=== PATIENT | female | born 1960 | race Caucasian/White ===

== ENCOUNTER 2019-04-24 09:32 | Outpatient (CLI) | payer OTHER, SELFPAY ==
--- NOTE | 2019-04-24 09:45 | CT_ITS ---
WS: [id number] CT ABDOMEN AND PELVIS WITH AND WITHOUT CONTRAST HISTORY: IRRITABLE BOWEL SYNDROME, ABDOMINAL PAIN ,HYPERTENSION TECHNIQUE: Unenhanced 5 mm axial imaging first performed through the abdomen. Post contrast imaging t hrough the abdomen and pelvis. Oral contrast has been provided. Sagittal and coronal reformats are s ubmitted. All CT scans at [facility] use at least one of these dose optimization techniqu es: automated exposure control; mA and/or kV adjustment per patient size (includes targeted exams whe re dose is matched to clinical indication); or iterative reconstruction. CONTRAST: Omnipaque 300; 95 mL IV. DLP: 2890.85 mGy-cm. COMPARISON: None available. Lung bases are clear. Heart size is normal. Small hiatal hernia. Normal size liver. No bile duct dilatation or mass. Normal gallbladder and spleen. Normal pancreas an d adrenal glands. Kidneys are normal size with no calcifications or obstruction. No solid mass. [place] l aorta. No free fluid or adenopathy within the abdomen or pelvis. Moderate constipation. Numerous diverticula in the descending and sigmoid colon. Extensive diverticul ar disease but no acute diverticulitis. There is no free fluid or abscess or inflammatory changes. Th e appendix is normal. Prior hysterectomy. Negative urinary bladder. Mild S-shaped thoracolumbar scoliosis. CT/CT abdomen pelvis wo/w [id number] IMPRESSION: 1. No acute abdominal or pelvic abnormalities are identified. 2. Prior hysterectomy. 3. Moderate diverticulosis in the descending and sigmoid colon without acute d iverticulitis. 4. Normal appendix. 5. No renal calcification or obstruction. 6. Small hiatal hernia.
[2019-04-24] MEDS: iohexol 300 mg/mL 100 mL Btl IV (11:08)
[2019-04-24] MEDS: iohexol 300 mg/mL 50 mL Btl PO (11:10)
== END 2019-04-24 09:33 | disposition home or self-care (01) ==
PROVIDERS: Family Provider Family Medicine; PCP Family Medicine; Visit Provider Family Medicine
DX: I10 Essential (primary) hypertension (principal); K58.9 Irritable bowel syndrome, unspecified; R10.32 Left lower quadrant pain; K57.30 Diverticulosis of large intestine without perforation or abscess without bleeding; K44.9 Diaphragmatic hernia without obstruction or gangrene
CPT/HCPCS: 74178; Q9967

== ENCOUNTER 2019-11-12 06:46 | Day surgery (SDC) | payer BC, OTHER, SELFPAY ==
--- NOTE | 2019-11-12 07:14 | ANES.PREANE2 ---
Pre-Anesthetic Assessment Pre-Anesthetic Assessment: Preop Diagnosis: change in bowel habits Proposed Procedure: Operation Date: 11/12/19 07:30 Proposed Procedures p Colonoscopy(Not Applicable) - Kiko Wong MD Was Beta Anatoliy taken within 24 hours: N/A Social: Social History: No alcohol and No tobacco Exam: Pre-Anes Outpt Exam: alert, oriented x 3, clear to auscultation bilaterally and regular rate & rhythm Airway: Submandibular: WNL Cervical ROM: WNL MP: 2 Dentition: Full History/ROS: No significant history except as noted and No significant complaints Pulmonary: Pulmonary: None reported CV/HEM: CV/HEM: None reported : : None reported Hepatic: Hepatic: None reported GI: GI: GERD Comments: controlled Metabolic: Metabolic: None reported Musc/skel: Musc/skel: None reported Neuropsych: Neuropsych: None reported Anesthetic Plan: ASA status: 2 Anesthesia: Anesthesia Evaluation and MAC Risk of > 500 ml blood loss (7ml/kg in children): No Data Anesthesia Cardiac Studies: No Data to Display
[2019-11-12] MEDS: sodium chloride 0.9% 1,000 ML 30 ML IV (07:15)
--- NOTE | 2019-11-12 07:18 | W.PM.OPSUD ---
Surgery/Procedure H&P Update DATE OF PROCEDURE: November 12, 2019 DATE H&P PERFORMED: 11/09/19 H&P UPDATE INFORMATION: No changes to prior documentation PLANNED PROCEDURE: Operation Date: 11/12/19 07:30 Proposed Procedures p Colonoscopy(Not Applicable) - Kiko Wong MD
[2019-11-12 07:19] VITALS: BP 135/102; PULSE 94; RESP 18; TEMP 36.6; O2SAT 94
[2019-11-12 07:20] VITALS: BMI 31.3
[2019-11-12] MEDS: sodium chloride 0.9% 500 ML 999 ML IV (07:25)
[2019-11-12 07:38] VITALS: BP 112/82; PULSE 85; RESP 16; TEMP 36.5; O2SAT 93
[2019-11-12 07:48] VITALS: BP 137/94; PULSE 79; RESP 18; O2SAT 96
== END 2019-11-12 08:05 | disposition home or self-care (01) ==
PROVIDERS: PCP Family Medicine; Visit Provider Surgery
PROC: 0DJD8ZZ Inspection of Lower Intestinal Tract, Via Natural or Artificial Opening Endoscopic (ICD-10-PCS; CPT 45378; principal; 2019-11-12 07:30)
DX: K57.30 Diverticulosis of large intestine without perforation or abscess without bleeding (principal); K21.9 Gastro-esophageal reflux disease without esophagitis
CPT/HCPCS: 12345; 45378; J0171; J2704; J7030

== ENCOUNTER 2021-01-12 11:20 | Outpatient (CLI) | payer OTHER, SELFPAY ==
--- NOTE | 2021-01-12 11:28 | XR_ITS ---
NOTE: Report was unsigned for reason: Ordering provider was edited. Original Signature date and time was: 01/12/21 @ 1151 WS: [id number] Right calcaneus, 2 views, 01/12/2021 Clinical Data: RIGHT FOOT PAIN Comparison: None. Findings: There are no fractures or dislocations. No bone destruction or erosion is seen. The soft tissues are normal. There is a plantar spur and an Achilles spur. [facility] calcane[facility] RT min 2V [id number] Impression: Negative right calcaneus.
== END 2021-01-12 11:21 | disposition home or self-care (01) ==
LOC: RAD 11:23
PROVIDERS: PCP Family Medicine
DX: M79.671 Pain in right foot (principal)
CPT/HCPCS: 73650

== ENCOUNTER → 2021-04-12 14:09 | Outpatient (BNVA) | payer OTHER, SELFPAY | PROVIDERS: PCP Family Medicine; Referring Provider Radiology Diagnostic Radiology; Visit Provider Podiatrist Foot & Ankle Surgery | DX: M25.571 Pain in right ankle and joints of right foot (principal) | CPT/HCPCS: 73610 ==

== ENCOUNTER → 2021-12-05 08:27 | Outpatient (BNVA) | payer SELFPAY | PROVIDERS: PCP Family Medicine; Visit Provider Dermatology | DX: Z01.89 Encounter for other specified special examinations (principal) ==

== ENCOUNTER → 2021-12-29 09:57 | Outpatient (BNVA) | payer OTHER, SELFPAY | PROVIDERS: PCP Family Medicine; Visit Provider Family Medicine | DX: D75.1 Secondary polycythemia (principal); N28.9 Disorder of kidney and ureter, unspecified; R73.9 Hyperglycemia, unspecified | CPT/HCPCS: 80053; 85025 ==

== ENCOUNTER → 2022-06-29 09:14 | Outpatient (BNVA) | payer BC, SELFPAY | PROVIDERS: PCP Family Medicine; Visit Provider Family Medicine | DX: I10 Essential (primary) hypertension (principal) | CPT/HCPCS: 80048 ==

== ENCOUNTER 2022-08-13 11:00 | Outpatient (CLI) | payer BC, SELFPAY | END 2022-08-13 11:01 | disposition home or self-care (01) | LOC: SLEEP 08-14 16:20 | PROVIDERS: PCP Family Medicine; Visit Provider Family Medicine | DX: G47.33 Obstructive sleep apnea (adult) (pediatric) (principal); R09.02 Hypoxemia | CPT/HCPCS: G0399 ==

== ENCOUNTER → 2022-09-05 11:27 | Outpatient (BNVA) | payer BC, SELFPAY | PROVIDERS: PCP Family Medicine; Visit Provider Nurse Practitioner Family | DX: R39.9 Unspecified symptoms and signs involving the genitourinary system (principal); M54.50 Low back pain, unspecified | CPT/HCPCS: 80053; 81000; 85025 ==

== ENCOUNTER → 2023-01-10 09:57 | Outpatient (BNVA) | payer BC, SELFPAY | PROVIDERS: PCP Family Medicine; Visit Provider Family Medicine | DX: G47.33 Obstructive sleep apnea (adult) (pediatric) (principal); I10 Essential (primary) hypertension; R73.9 Hyperglycemia, unspecified; N28.9 Disorder of kidney and ureter, unspecified; D75.1 Secondary polycythemia; E03.9 Hypothyroidism, unspecified; R21 Rash and other nonspecific skin eruption | CPT/HCPCS: 80053; 82607; 83036; 84443; 85025; 86140; 86160; 86162; 86235; 86255; 86376 ==

== ENCOUNTER → 2023-02-08 16:06 | Outpatient (BNVA) | payer BC, SELFPAY | PROVIDERS: PCP Family Medicine; Visit Provider Nurse Practitioner | DX: S99.922A Unspecified injury of left foot, initial encounter (principal); W19.XXXA Unspecified fall, initial encounter | CPT/HCPCS: 73630 ==

== ENCOUNTER → 2023-05-16 08:11 | Outpatient (BNVA) | payer BC, SELFPAY | PROVIDERS: PCP Family Medicine; Visit Provider Family Medicine | DX: N28.9 Disorder of kidney and ureter, unspecified (principal) | CPT/HCPCS: 82575; 84450; 84550; 85025 ==

== ENCOUNTER → 2024-02-14 11:03 | Outpatient (BNVA) | payer BC, SELFPAY | PROVIDERS: PCP Family Medicine; Visit Provider Clinical Nurse Specialist Adult Health | DX: R35.0 Frequency of micturition (principal); R31.9 Hematuria, unspecified; N39.0 Urinary tract infection, site not specified | CPT/HCPCS: 81000; 87086 ==

== ENCOUNTER 2024-02-27 13:16 | Outpatient (CLI) | payer BC, SELFPAY ==
[2024-02-27 14:13] LABS: Bilirubin Urine Negative (Negative); Blood Urine 2+ (Negative); Glucose Urine UA Negative (Normal); Ketones Urine Negative (Negative); Leukocyte Esterase Urine Trace (Negative); Nitrate Urine Negative (Negative); Protein Urine Negative (Negative); Specific Gravity, Urine 1.012 (1.005-1.030); Urine Appearance Clear (CLEAR); Urine Color Yellow (Yellow); Urobilinogen Urine 0.2 mg/dL (Negative); pH Urine 5.5 (5-7)
[2024-02-27 14:16] LABS: Alanine Aminotransferase 18 U/L (0-33); Albumin Level 4.3 g/dL (3.5-5.2); Alkaline Phosphatase 107 U/L (35-105); Anion Gap 13.7 (5-19); Aspartate Amino Transferase 19 U/L (0-32); Blood Urea Nitrogen 9 mg/dL (8-23); Calcium 9.8 mg/dL (8.5-10.5); Carbon Dioxide 28 mmol/L (22-29); Chloride 100 mmol/L (98-107); Globulin 2.7 g/dL (1.3-4.6); Glomerular Filtration Rate 63.7 mL/min (90-130); Glucose 93 mg/dL (65-115); Osmolality Calculated 284 mOsm/kg (285-295); Potassium 3.7 mmol/L (3.5-5.1); Sodium 138 mmol/L (136-145); Total Bilirubin 0.2 mg/dL (0.15-1.2)
[2024-02-27 14:18] LABS: Add Urine Microscopic? YES; Bacteria Urine None Seen /hpf; Hyaline Casts Urine 0-4 /lpf; WBC Urine 0-5 /hpf (0-5)
== END 2024-02-27 13:17 | disposition home or self-care (01) ==
LOC: LAB 13:18
PROVIDERS: PCP Family Medicine; Visit Provider Clinical Nurse Specialist Adult Health
DX: D75.1 Secondary polycythemia (principal); N28.9 Disorder of kidney and ureter, unspecified; R31.9 Hematuria, unspecified
CPT/HCPCS: 36415; 80053; 81001

== ENCOUNTER → 2024-03-12 10:36 | Outpatient (BNVA) | payer BC, SELFPAY | PROVIDERS: PCP Family Medicine; Visit Provider Clinical Nurse Specialist Adult Health | DX: J06.9 Acute upper respiratory infection, unspecified (principal); R31.9 Hematuria, unspecified | CPT/HCPCS: 81000; 87086 ==

== ENCOUNTER → 2024-04-01 12:18 | Outpatient (BNVA) | payer BC, SELFPAY | PROVIDERS: PCP Family Medicine; Visit Provider Clinical Nurse Specialist Adult Health | DX: J32.9 Chronic sinusitis, unspecified (principal) | CPT/HCPCS: 87400 ==

== ENCOUNTER → 2024-04-24 10:59 | Outpatient (BNVA) | payer BC, SELFPAY | PROVIDERS: PCP Family Medicine; Visit Provider Clinical Nurse Specialist Adult Health | DX: N39.0 Urinary tract infection, site not specified (principal); R31.9 Hematuria, unspecified | CPT/HCPCS: 81000 ==

== ENCOUNTER 2024-04-30 07:57 | Outpatient (CLI) | payer BC, SELFPAY ==
--- NOTE | 2024-04-30 08:11 | CT_ITS ---
WS: [id number] CT ABDOMEN AND PELVIS WITH AND WITHOUT CONTRAST HISTORY: HEMATURIA TECHNIQUE: Unenhanced 5 mm axial imaging first performed through the abdomen. Post contrast imaging through the abdomen and pelvis. Oral contrast has not been provided. Sagittal and coronal reformats are submitted. All CT scans at [facility] use at least one of these dose optimization techniques: automated exposure control; mA and/or kV adjustment per patient size (includes targeted exams where dose is matched to clinical indication); or iterative reconstruction. CONTRAST: Omnipaque 350; 95 mL IV. DLP: 2599.63 mGy.cm COMPARISON: 04/24/2019 Benign calcified granuloma LEFT lung base. Heart is normal size. Small hiatal hernia. RIGHT kidney: 11.0 cm in length. No significant perinephric stranding. No renal or ureteral calcification. No obstruction. No enhancing mass. Delayed imaging is negative for uroepithelial lesion. Good contrast opacification of the ureter. LEFT kidney: 9.4 cm in length. No perinephric stranding or obstruction. No renal calcification. No enhancing mass. No uroepithelial lesion. Normal LEFT ureter. Urinary bladder: Nondistended bladder. On delayed imaging there is contrast filling the base of the urinary bladder. No mass identified. Normal size liver and spleen. Normal gallbladder. Normal pancreas and adrenal glands. Normal aorta. No mesenteric artery thrombus. Nondistended stomach. Normal small bowel. Normal appendix. Moderate distal colon diverticular disease. Increased diverticular burden in the sigmoid with narrowing of the lumen. No acute diverticulitis. No free fluid or free air or abscess. Prior hysterectomy. Thoracolumbar scoliosis with RIGHT curvature of the lumbar spine. CT/CT abdomen pelvis wo/w [id number] IMPRESSION: 1. No renal mass or obstruction. 2. No uroepithelial lesions. Ureters normal course and caliber. 3. Negative urinary bladder. 4. No ascites or adenopathy. 5. Moderate distal colon diverticulosis without acute diverticulitis.
[2024-04-30] MEDS: iohexol 350 mg/mL 500 mL Btl (per mL) IV (08:33)
== END 2024-04-30 07:58 | disposition home or self-care (01) ==
LOC: RAD 07:58
PROVIDERS: PCP Family Medicine; Visit Provider Nurse Practitioner Family
DX: R31.9 Hematuria, unspecified (principal); K57.30 Diverticulosis of large intestine without perforation or abscess without bleeding; J84.10 Pulmonary fibrosis, unspecified; K44.9 Diaphragmatic hernia without obstruction or gangrene; Z98.890 Other specified postprocedural states; M41.85 Other forms of scoliosis, thoracolumbar region; M43.8X6 Other specified deforming dorsopathies, lumbar region
CPT/HCPCS: 74178